=== PATIENT | female | born 1990 | race Caucasian/White ===

== ENCOUNTER 2016-12-28 08:56 | Inpatient (IN) | payer OTHER ==
[~2016-12-28] VITALS: Ht 172.7 cm; Wt 85.0 kg
[2016-12-28] VITALS (35 sets, daily range): BP systolic 103–130; BP diastolic 60–84; PULSE 64–97; TEMP 97.4–98.4
[2016-12-28] MEDS ORDERED: PRENATAL1 TA7 PO (09:08)
[2016-12-28 10:15] LABS: BASO # 0.1 (0.0-0.2); BASO % 0.4 % (0.0-2.0); EOS # 0.1 (0.0-0.7); EOS % 0.4 % (0-4.0); GRAN # 10.2 (1.4-6.5); GRAN % 76.1 % (42.2-75.2); HEMATOCRIT 36.6 % (37.0-47.0); HEMOGLOBIN 12.6 g/dl (12.5-16.0); LYMPH # 1.8 (1.2-3.4); LYMPH % 13.2 % (20.0-51.0); MEAN CELL VOLUME 93 fl (80.0-100.0); MEAN CORPUSCULAR HEMOGLOBIN 32 pg (27.0-31.0); MEAN CORPUSCULAR HGB CONC 34 g/dl (33.0-37.0); MONO # 1.3 (0.1-0.6); MONO % 9.5 % (1.7-9.3); PLATELET COUNT 141 K/mm3 (130-400); RED BLOOD COUNT 3.92 M/mm3 (4.10-5.30); REDCELL DISTRIBUTION WIDTH-CV 12.5 % (11.5-14.5); WHITE BLOOD COUNT 13.4 K/mm3 (4.8-10.8)
[2016-12-28] MEDS ORDERED: PERCOCET 325 MG1 TA2 PO (16:41)
[2016-12-28] MEDS ORDERED: MOTRIN 800800 MG/TAB PO (16:41)
[2016-12-29 01:30] VITALS: BP 104/60; PULSE 71
[2016-12-29 05:00] VITALS: BP 112/61; PULSE 72; TEMP 97.5
[2016-12-29 07:35] VITALS: BP 103/65; PULSE 70; TEMP 97.6
[2016-12-29 15:28] VITALS: BP 109/62; PULSE 83; TEMP 98.2
[2016-12-29 19:40] VITALS: BP 115/66; PULSE 72; TEMP 97.8
[2016-12-30 08:00] VITALS: BP 104/66; PULSE 67; TEMP 97.8
== END 2016-12-30 11:50 | disposition home or self-care (01) | DRG 775 ==
LOC: LDRO 08:56 → OB 09:15 → LDR 09:15 → OB 21:00 → LDRO 01-01 11:50
PROVIDERS: Obstetrics & Gynecology
PROC: 10E0XZZ Delivery of Products of Conception, External Approach (ICD-10-PCS; principal; 2016-12-28)
PROC: 0KQM0ZZ Repair Perineum Muscle, Open Approach (ICD-10-PCS; 2016-12-28)
DX: O42.02 Full-term premature rupture of membranes, onset of labor within 24 hours of rupture (principal); O99.824 Streptococcus B carrier state complicating childbirth; O70.1 Second degree perineal laceration during delivery; Z3A.39 39 weeks gestation of pregnancy; Z37.0 Single live birth
CPT/HCPCS: J2540; J2590; J7120

== ENCOUNTER 2022-04-24 18:02 | Inpatient (IN) | payer BC ==
[~2022-04-24] VITALS: Ht 172.7 cm; Wt 93.2 kg
[2022-04-24] VITALS (12 sets, daily range): BP systolic 111–131; BP diastolic 68–78; PULSE 56–97; TEMP 98.2–98.5
[~2022-04-24 18:02] MED LIST: MOTRIN 800800 MG/TAB PO; PERCOCET 325 MG1 TA2 PO; PRENATAL1 TA7 PO
--- NOTE | 2022-04-24 18:10 | NUR ---
1809- PT PRESENTS TO LDR COMPLAINING OF LEAKING FLUID. AMBULATORY TO ROOM LR3, CHANGED INTO GOWN. 1815- EFM X2 APPLIED. PT REPORTS LEAKING FLUID STARTING AT 1730, CLEAR FLUID. PT REPORTS NORMAL MOVEMENT AND DENIES VAGINAL BLEEDING. PT REPORTS NOTICING SOME CONTRACTIONS SINCE RUPTURE BUT NOTHING PAINFUL. PLAN OF CARE FOR LABOR CHECK DISCUSSED AND QUESTIONS ANSWERED. 1824- AMNIOTRACE POSITIVE FOR ROM, COPIOUS AMOUNTS OF CLEAR FLUID NOTED. SVE BY THIS NURSE /. 1827- DR WOO CALLED CHARTED. ORDERS FOR ADMISSION. 1834- NURSING ADMISSION HISTORY AND ASSESSMENT COMPLETE. 184- CONSENTS SIGNED. 1904- IV START TO LEFT FOREARM CHARTED. BLOOD DRAWN FOR LABS. LR INFUSING ORDERED.
--- NOTE | 2022-04-24 19:25 | NUR ---
1925- DR WOO AT BEDSIDE, DISCUSSES PLAN OF CARE WITH PT AND ANSWERS QUESTIONS. SVE BY DR WOO WITH NO CHANGE. PT DENIES FURTHER NEEDS AT THIS TIME.
[2022-04-24 19:46] LABS: BASO # 0.1 K/mm3 (0.0-0.2); BASO % 0.6 % (0.0-2.0); EOS # 0.1 K/mm3 (0.0-0.7); EOS % 0.7 % (0.0-4.0); GRAN # 7.4 K/mm3 (1.4-6.5); GRAN % 68.9 % (42.2-75.2); HEMOGLOBIN 12.7 g/dl (12.5-16.0); LYMPH # 2.2 K/mm3 (1.2-3.4); LYMPH % 20.1 % (20.0-51.0); MEAN CELL VOLUME 93 fl (80.0-100.0); MEAN CORPUSCULAR HEMOGLOBIN 33 pg (27-31); MEAN CORPUSCULAR HGB CONC 35 g/dl (33.0-37.0); MONO % 9.4 % (1.7-9.3); PLATELET COUNT 168 K/mm3 (130-400); RED BLOOD COUNT 3.87 M/mm3 (4.10-5.30); REDCELL DISTRIBUTION WIDTH-CV 12.5 % (11.5-14.5)
--- NOTE | 2022-04-24 20:25 | NUR ---
2024- PT STATES SHE IS FEELING HER CONTRACTIONS MORE AT THIS TIME. SHE IS STILL TOLERATING THEM WELL. SHE DENIES FURTHER NEEDS AT THIS TIME. 2124- PT REPORTS HER CONTRACTIONS ARE GETTING STRONGER. SVE BY THIS NURSE -2127- DR WOO CALLED AND UPDATED CHARTED, ORDERS FOR EPIDURAL WHEN PT DESIRES AND AUGMENTATION WITH PITOCIN IF NEEDED.
--- NOTE | 2022-04-24 22:40 | NUR ---
2247- NURSE TO BEDSIDE. UPDATES PT ON DR WOO PLAN OF CARE, QUESTIONS ANSWERED. PT WISHES TO BE CHECKED NOW, AND WOULD LIKE TO START PITOCIN IF SHE HAS NOT CHANGED MUCH. SVE BY THIS NURSE . PT REQUESTS THAT PITOCIN BE STARTED.
--- NOTE | 2022-04-24 22:45 | NUR ---
2245- PT UP TO BATHROOM. 2247- PT BACK TO BED. 2300- AUGMENTATION WITH PITOCIN DISCUSSED WITH PT AND QUESTIONS ANSWERED. PITOCIN STARTED AT 2MUNITS ORDERED. 2335- PT REPORTS SHE IS STARTING TO GET UNCOMFORTABLE WITH HER CONTRACTIONS. SHE STATES THEY ARE CLOSER AND STRONGER AT THIS TIME. PITOCIN INCREASED TO 4MUNITS. PT REQUESTS HER EPIDURAL AT THIS TIME. 2342- LIANE RESEARCH PHYSIOLOGIST CALLED FOR EPIDURAL PLACEMENT. 0004- PT UP TO BATHROOM. 0009- LIANE RESEARCH PHYSIOLOGIST AT BEDSIDE FOR EPIDURAL PLACEMENT. PT POSITIONED SITTING UP ON EDGE OF BED. LIANE DISCUSSES EPIDURAL RISKS AND BENEFITS. TIME OUT DONE. 0018- EPIDURAL TEST DOSE. DIFFICULT TO TRACE EFM DURING PROCEDURE DUE TO PT POSITION. 0023- EPIDURAL PROCEDURE COMPLETE. PT TOLERATED WELL. PT POSITIONED IN LEFT TILT, MONITORS ADJUSTED. 0030- PT REPORTS INCREASING COMFORT AT THIS TIME.
[2022-04-25] VITALS (22 sets, daily range): BP systolic 109–138; BP diastolic 59–81; PULSE 64–96; TEMP 97.5–98.2
--- NOTE | 2022-04-25 01:00 | NUR ---
0100- PT REPORTS SHE IS COMFORTABLE WITH HER EPIDURAL AT THIS TIME. SVE BY THIS NURSE /-1. PEANUT BALL UNDER RIGHT KNEE. 0210- PT REPORTS STILL FEELING COMFORTABLE WITH HER EPIDURAL. STRAIGHT CATH OF SCANT AMOUNT OF URINE. SVE BY THIS NURSE COMPLETE AND +2. PT TURNED TO RIGHT TILT AND PEANUT BALL UNDER LEFT KNEE. PITOCIN TURNED OFF AT THIS TIME. 0223-DR WOO CALLED FOR DELIVERY CHARTED.
--- NOTE | 2022-04-25 02:42 | NUR ---
0235 - This RN assuming care of patient for delivery. Dr. Fernandez en route to hospital. 0237 - Late, variable deceleration down to 60 bpm lasting 70 seconds with return to baseline of 110 bpm. Pt denies feeling pressure with contractions. 0239 - Late, variable deceleration down to 60 bpm lasting 80 seconds with return to baseline of 110 bpm. Room set up for delivery. Delaney Healy RN at bedside as nursery nurse. Britney Hi RN at bedside. 0241 - Dr. Fernandez gowned and gloved at perineum. Pt positioned into footplates, small crown noted. 0242 - Spontaneous vaginal delivery of viable infant boy. Infant placed to mother's abdomen. Care of assumed to CHANTELLE Dias. Cord clamped x [address] Fernandez and cut by FOB. Cord blood obtained. Epidural off. 0247 - Repair of periclitoral, right labial, and superficial perineal laceration by Dr. Fernandez. 0250 - Spontaneous delivery of intact placenta. Fundus firm and down 2 from umbilicus. Scant bleeding noted with massage. Pitocin restarted at 333 mL/hr. EBL [address] Fernandez. Pericare provided. New chux beneath patient. Ice pack to perineum. recovery started. See physician delivery note.
--- NOTE | 2022-04-25 05:30 | NUR ---
Pt able to lift and hold each leg off of bed for 5 seconds but does not feel like she would have a steady gait to ambulate to bathroom. Epidural catheter removed. Tip smooth, blue, and intact. Steady lift used to transport patient to bathroom. Pt unable to void at this time. Pt educated on need of 3 measured voids. Pericare explained and provided. Mesh panties, peripad and ice pack applied. Pt able to ambulate short distance to wheelchair independently. Transferred to room 219 by wheelchair in stable condition with belongings.
[2022-04-25] MEDS ORDERED: MOTRIN 800800 MG/TAB PO (07:29)
--- NOTE | 2022-04-25 09:28 | NUR ---
Initial visit; Patient thanked Correctional Officer Sergeant for offering congratulations and God's blessings for the of their son. Correctional Officer Sergeant thanked patient for choosing [facility].
[2022-04-26 00:47] VITALS: BP 107/73; PULSE 84; TEMP 98.3
[2022-04-26 07:55] VITALS: BP 106/71; PULSE 67; TEMP 97.9
--- NOTE | 2022-04-26 09:25 | NUR ---
Initial visit; Parents thanked Boom Stick Worker for offering congratulations and God's blessings for the of their son. Boom Stick Worker thanked family for choosing [facility].
== END 2022-04-26 13:40 | disposition home or self-care (01) | DRG 768 ==
LOC: LDRO 18:02 → OB 18:31 → LDR 18:31 → OB 04-25 05:45
PROVIDERS: ADMIT Obstetrics & Gynecology
PROC: 10E0XZZ Delivery of Products of Conception, External Approach (ICD-10-PCS; principal; 2022-04-25)
PROC: 0UQJXZZ Repair Clitoris, External Approach (ICD-10-PCS; 2022-04-25)
PROC: 0HQ9XZZ Repair Perineum Skin, External Approach (ICD-10-PCS; 2022-04-25)
PROC: 0UQMXZZ Repair Vulva, External Approach (ICD-10-PCS; 2022-04-25)
DX: O70.0 First degree perineal laceration during delivery (principal); Z37.0 Single live birth; Z3A.39 39 weeks gestation of pregnancy
CPT/HCPCS: J2590; J7120